=== PATIENT | female | born 1960 ===

== ENCOUNTER 2017-06-15 21:27 | Emergency (ER) | payer MEDICAID, OTHER ==
[2017-06-15 21:34] VITALS: TEMP 97.8; O2SAT 95
[2017-06-15] MEDS ORDERED: Albuterol-Ipratrop 3 mg / 0.5 (3 ml) UD ONE (21:58)
[2017-06-15] MEDS ORDERED: MethylPREDNISolone 40 mg Vial ONE (21:58)
[2017-06-15] MEDS: Albuterol-Ipratrop 3 mg / 0.5 (3 ml) UD IH SCH ×2 (22:16→22:43)
--- NOTE | 2017-06-15 23:03 | C.PDOC ---
History Of Present Illness The patient reports 1 week history of non-productive cough. Patient reports that she is a smoker and quit 1 week ago. Denies fever, travel, chest pain, hemoptysis, back pain, abdominal pain, vomiting, diarrhea. Time Seen by Provider: 06/15/17 21:46 Chief Complaint (Nursing): Cough, Cold, Congestion History Per: Patient History/Exam Limitations: no limitations Onset/Duration Of Symptoms: Days, Persistent Current Symptoms Are (Timing): Worse (today) Past Medical History Vital Signs: Last Vital Signs Temp 97.8 F 06/15/17 21:30 Pulse 92 H 06/15/17 21:30 Resp 18 06/15/17 21:30 BP 180/104 H 06/15/17 21:30 Pulse Ox 95 06/15/17 21:30 - Medical History PMH: Bronchitis Family History: States: Unknown Family Hx - Social History Hx Tobacco Use: Yes Hx Alcohol Use: Yes Hx Substance Use: No - Immunization History Hx Tetanus Toxoid Vaccination: No Hx Influenza Vaccination: No Hx Pneumococcal Vaccination: No Review Of Systems Except As Marked, All Systems Reviewed And Found Negative. Physical Exam - Physical Exam Appears: Non-toxic, No Acute Distress Skin: Normal Color, Warm, No Rash Head: Atraumatic, Normacephalic Eye(s): bilateral: Normal Inspection, PERRL, EOMI Nose: Normal Oral Mucosa: Moist Throat: No Erythema, No Exudate Neck: Normal ROM, Supple Cardiovascular: Rhythm Regular, No Friction Rub, No Murmur Respiratory: No Accessory Muscle Use, No Rales, No Rhonchi, No Stridor, Wheezing (moderate bilateral expiratory wheezing) Gastrointestinal/Abdominal: Bowel Sounds (active), Soft, No Tenderness Back: No CVA Tenderness Extremity: Normal ROM, No Tenderness, No Swelling Neurological/Psych: Oriented x3, Normal Speech, Normal Motor, Normal Sensation Gait: Steady ED Course And Treatment O2 Sat by Pulse Oximetry: 95 (on RA) Pulse Ox Interpretation: Normal Medical Decision Making Medical Decision Making: On re-exam, the patient reports improvement of symptoms. Pulse is 99% on RA. Lungs are CTA, heart is RRR, ambulatory in the ED with steady gait. abdomen is soft, non-tender and tolerating PO well. Follow up with the medical doctor within 1-2 days. Return if worsened. Disposition - Disposition Referrals: Wendy Liang MD [Medical Doctor] - Disposition: HOME/ ROUTINE Disposition Time: 23:04 Condition: GOOD Additional Instructions: Follow up with the medical doctor within 1-2 days. Return if worsened. Prescriptions: Albuterol HFA [Ventolin HFA 90 mcg/actuation (8 g)] 1 puff IH Q6 PRN #100 puff PRN Reason: Wheezing Azithromycin [Zithromax] 250 mg PO DAILY #6 tab predniSONE [Prednisone] 20 mg PO BID #10 tab Spacer, Inhalation [Aerochamber] 1 dev IH Q4 #1 dev Instructions: Acute Bronchitis (ED), COPD (Chronic Obstructive Pulmonary Disease) (ED) - Clinical Impression Clinical Impression: Bronchitis
[2017-06-15 23:04] VITALS: BP 168/87; PULSE 87; RESP 20
--- NOTE | 2017-06-16 09:34 | RAD ---
HISTORY: SOB, cough COMPARISON: Comparison is made to 09/11/2016 TECHNIQUE: Chest PA and lateral FINDINGS: LUNGS: No active pulmonary disease. PLEURA: No significant pleural effusion identified. No pneumothorax apparent. CARDIOVASCULAR: Normal. OSSEOUS STRUCTURES: No significant abnormalities. VISUALIZED UPPER ABDOMEN: Normal. OTHER FINDINGS: None. IMPRESSION: No active disease.
== END 2017-06-15 23:26 | disposition home or self-care (01) ==
LOC: C.ER 21:27
DX: J40 Bronchitis, not specified as acute or chronic (principal); F17.210 Nicotine dependence, cigarettes, uncomplicated
CPT/HCPCS: 71020; 96372; 99283; J2930